=== PATIENT | male | born 1990 | race Caucasian/White ===

== ENCOUNTER 2018-04-30 19:59 | Emergency (ER) | payer SELFPAY ==
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
[2018-04-30] MEDS ORDERED: DEXAMETHASONE 10 MG/ML VIAL ONE (21:33)
== END 2018-04-30 21:41 | disposition home or self-care (01) ==
LOC: ER 19:59
DX: T63.461A Toxic effect of venom of wasps, accidental (unintentional), initial encounter (principal); W57.XXXA Bitten or stung by nonvenomous insect and other nonvenomous arthropods, initial encounter; Y93.9 Activity, unspecified; Y92.9 Unspecified place or not applicable
CPT/HCPCS: 96372; 99283; J1100

== ENCOUNTER 2019-09-01 10:40 | Emergency (ER) | payer SELFPAY ==
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
[2019-09-01 12:15] VITALS: BP 126/82; O2SAT 100
== END 2019-09-01 12:08 | disposition home or self-care (01) ==
LOC: ER 10:40
DX: T21.23XA Burn of second degree of upper back, initial encounter (principal); T31.0 Burns involving less than 10% of body surface; X08.8XXA Exposure to other specified smoke, fire and flames, initial encounter; Y93.89 Activity, other specified; Y92.89 Other specified places as the place of occurrence of the external cause; Y99.8 Other external cause status
CPT/HCPCS: 99283